=== PATIENT | male | born 1995 | race Caucasian/White ===

== ENCOUNTER 2024-10-13 15:36 | Outpatient (AMB) | payer OTHER, SELFPAY ==
--- NOTE | 2024-10-13 15:37 | MHC.OFFVIS ---
Intake Visit Reasons: 6 Months Accompanied by: Mother Allergies No Known Allergies Allergy (Verified 10/13/24 15:39) Medication List - Last Reconciled 10/13/24 by Dorothy Oneil CNP amitriptyline 75 mg PO BEDTIME cetirizine (Allergy Relief (cetirizine)) 10 mg PO DAILY cholecalciferol (vitamin D3) 50 mcg PO DAILY clonidine HCl 0.1 mg PO BID clozapine mg PO glycopyrrolate mg PO melatonin 3 mg PO BEDTIME topiramate 25 mg PO DAILY HPI Comments Details: 28-year-old man with schizophrenia and migraine type headaches. He was doing okay. Migraines were controlled with topiramate. He had headache only once in a while. Sleep was okay. Review of Systems Const Denies chills, Denies daytime sleepiness, Denies difficulty sleeping, Denies fatigue, Denies fever(s), Denies frequent falls, Reports headache(s), Denies increased appetite, Denies poor appetite, Denies snoring, Denies weakness, Denies weight gain and Denies weight loss Eyes Denies loss of vision ENT Denies vertigo, Denies dizziness and Reports headache(s) Card Denies chest pain at rest, Denies chest pain with activity, Denies syncope, Denies leg edema and Denies palpitations Resp Denies snoring GI Denies constipation, Denies heartburn, Denies diarrhea and Denies nausea Denies urinary frequency, Denies urinary incontinence and Denies urinary urgency Musc Denies abnormal gait, Denies numbness and Denies tingling Skin/Breast Denies dry skin and Denies rash Neuro Denies abnormal gait, Denies vertigo, Denies dizziness, Denies syncope, Denies frequent falls, Reports headache(s), Denies lack of coordination, Denies loss of vision, Denies memory loss, Denies numbness, Denies restless legs, Denies seizure-like activity, Denies tingling, Denies paresthesias, Denies tremor(s) and Denies weakness Psych Denies anxiety, Denies depression, Denies auditory hallucinations, Denies memory loss, Denies visual hallucinations and Denies suicidal ideation Endo Denies fatigue and Denies palpitations Physical Exam Const Other: General Appearance:? normal, in no acute distress. Skin:? no rashes, no significant birthmarks. Heart:? S1, S2 normal, no murmurs. Lungs:? clear anteriorly and posteriorly. Extremities:? no edema. Psych:? alert, oriented, cognitive function intact, cooperative with exam. Neuro Other: Mental Status:?Normal attention, orientation, memory and affect.? Cranial Nerves:?Pupils are equal, round and reactive to light. External occular muscles are intact. Visual ingram are full. Face is symmetrical. Facial sensations are normal. Tongue is midline. Palate elevates symmetrically. Shoulder shrugging is normal. Hearing to bedside conversation is normal. Sensory Exam:?....? Coordination:?No ataxia,?no titubation.? Gait Exam: Within normal limits. Cerebellar Signs:?[id number] is okay. Extrapyramidal System:?No tremor, rigidity with normal facial expressions.? Pronator Drift:?Not present.? Involuntary Movements:?No tremors seen.? Speech:?Normal.? Assessment & Plan Assessment & Plan (1) Migraine: Code(s): G43.909 - Migraine, unspecified, not intractable, without status migrainosus Category: Medical Qualifiers: Migraine type: unspecified Status migrainosus presence: without status migrainosus Intractability: not intractable Qualified Code(s): G43.909 - Migraine, unspecified, not intractable, without status migrainosus Plan: Continue topiramate 25mg 1 tablet at bedtime. Plan Meds tried: amitriptyline Medications: New topiramate 25 mg PO BEDTIME 90 tabs 1RF 90 days Coding Level of Care Code Est Pt Level 3 (61497) Diagnoses Migraine without status migrainosus, not intractable, unspecified migraine type G43.909 Migraine type: unspecified Status migrainosus presence: without status migrainosus Intractability: not intractable
--- OUTSIDE RECORDS SUMMARY | 2024-10-13 16:01 | XMS_ITS | Clinical Summary ---
Author Organization [facility] Address [address] [place] [address] Care Team Providers Care Stem Lead Former Name Role Phone Unavailable Primary Care Provider Unavailabl e Source Comments PLEASE NOTE, if this patient is a minor, it may be UNLAWFUL to discuss sensitive information that is contained in these records (such as FAMILY PLANNING, MENTAL HEALTH or SUBSTANCE ABUSE) with the minor patient's parent or other person without the patient's specific authorization.[facility] Social History Tobacco Use Types Packs/Day Years Used Date Smoking Tobacco: Never Assessed Social Connections Answer Date Recorded Connectedness 0 10/31/2023 Financial Resource Strain Answer Date R ecorded Financial Resource Strain 0 2022 Stress Answer Date Recorded Stress 0 06/17/2022 Physical Activity Answer Date Recorded Physical Activity 0 06/17/2022 Food Insecurity Answer Date Recorded Food 0 11/12/2023 Transportation Needs Answer Date Record ed Transportation 0 06/17/2022 Housing Stability Answer Date Recorded Housing 0 06/17/2022 Safety and Environment Answer Date Josafat rded Safety 0 06/17/2022 Utilities Answer Date Recorded Utilities 0 06/17/2022 Employment Answer Date Recorded Stress 0 10/31/2023 Sex and Gender Information Value Date Recorded Sex Assigned at Not on file Legal Sex Male 12:54 PM PDT Gender Identity Not on file Sexual Orientation Not on file Plan of Treatment Health Maintenance Due Date Last Done Comments Anxiety Screening 1994 Hepatitis C Screening 1994 Tobacco Screening 1994 HIV Screening 2009 Hypertension Screening (#1) 2012 Imm-DTaP/Tdap/Td (1 - Tdap) 2013 Imm-Hepatitis B (1 of 3 - 19+ 3-dose series) 4 [id number] ( season) 2023 Alcohol and Drug Screen 02/17/2024 Depression Annual Screen 02/17/2024 Imm-Influenza (#1) 2024 [place]
--- OUTSIDE RECORDS SUMMARY | 2024-10-13 16:01 | XMS_ITS ---
Author Name [facility] Organization Unknown Care Team Organization Name Specialty Phone Email Start Date End Da te [facility] Josse [facility] 12/24/2021 10/05/2023
--- OUTSIDE RECORDS SUMMARY | 2024-10-13 16:02 | XMS_ITS | Clinical Summary ---
Author Organization LL [address] [place] [address] Address [address] [place] [address] Phone Care Team Providers Care Prescription Eyeglass Maker Name Role Phone Bhakti العلي MD Primary Care Provider [phone] Allergies No known active allergies Medications acetaminophen (TYLENOL) 500 mg tablet TAKE 1 TABLET BY MOUTH ONCE DAILY NEEDED FOR HEADACHE 4 Active albuterol HFA (PROAIR HFA ; PROVENTIL HFA ; VENTOLIN HFA) 90 mcg/actuation inhaler INHALE 2 PUFFS INTO THE LUNGS EVRY 4 HOURS NEEDED FOR COUGH OR WHEEZING. MAY USE 1 PUFF 30 MINUTES BEFORE EXERCISE 4 Active amitriptyline (ELAVIL) 75 mg tablet Take 1 Tablet by mouth at bedtime. Active cloNIDine (CATAPRES) 0.1 mg tablet Take 0.1 mg by mouth 2 times daily. Active cloZAPine (CLOZARIL) 100 mg tablet Take 5 tablets (500 mg total) by mouth at bedtime. Active cloZAPine (CLOZARIL) 100 mg tablet Take 1 tablet (100 mg total) by mouth 1 (one) time each day in the morning. Active glycopyrrolate (ROBINUL) 1 mg tablet Take 1 mg by mouth at bedtime. Active melatonin 3 mg tablet Take 1 Tablet by mouth at bedtime. Active ondansetron (ZOFRAN) 4 mg tablet Take 1 tablet (4 mg total) by mouth every 8 (eight) hours if needed. 4 Active topiramate (TOPAMAX) 25 mg tablet Take 1 tablet (25 mg total) by mouth 1 (one) time each day. 4 Active cholecalciferol (VITAMIN D-3) 50 mcg (2,000 unit) tabletIndication s:Elevated alkaline phosphatase level Take 1 tablet (2,000 Units total) by mouth 1 (one) time each day. 90 tablet 1 5 Active cetirizine (ZyrTEC) 10 mg tablet Take 1 tablet (10 mg total) by mouth 1 (one) time each day. 30 each 5 Active Active Problems Problem Noted Date Diagnosed Date Fatty liver 11/04/2022 Assessment & Plan (07/21/2024 5:59 PM EDT): Ultrasound of the abdomen has been ordered to follow-up on his fatty liver. Orders: US Abdomen Limited; Future Palpitations 08/07/2022 Overview (01/11/2024): Last Assessment & Plan: Given the patient's reports of palpitations, he underwent a 30-day looping monitor which showed sinus rhythm with occasional PVCs and no sustained arrhythmias. During the patient triggered symptomatic events it was noted that he was in sinus rhythm with mild sinus tachycardia. We reviewed these results today. He also underwent an echocardiogram which showed normal LV function and no significant valvular disease. His TSH and magnesium as well as electrolytes were noted to be within normal limits. We reviewed the possible triggers of palpitations including caffeine consumption, alcohol consumption, cigarette smoking, inadequate sleeping patterns, and stress. At this point, the patient will attempt to avoid the usual triggers. No further work up is required at this point. Elevated serum alkaline phosphatase level 2020 Assessment & Plan (07/21/2024 5:59 PM EDT): Follow-up with GI. Follow low-fat diet. Obesity (BMI 30-39.9) 06/09/2018 Overview (01/11/2024): Last Assessment & Plan: Patient is overweight. Approaches towards weight loss are discussed, including burning more calories than one takes in by portion control and regular exercise with an emphasis on duration rather than intensity. I have reviewed with the patient the importance of a heart healthy lifestyle which includes eating a low-fat low-salt diet, getting regular exercise, maintaining a healthy weight, not smoking, and following up with routine medical care. Asthma 01/22/2017 Assessment & Plan (07/21/2024 5:59 PM EDT): Continue albuterol inhaler as needed. Impulse disorder, unspecified 01/22/2017 Overview (01/11/2024): Dr Ochoa(psychiatry) [facility]. Damaris(therapist) [address], [place] Schizophrenia (CMS/HCC V24, CMS/HCC V28) 017 Overview (01/11/2024): Dr Ochoa(psychiatry) [facility]. Damaris(therapist) [address], [place] Encounters Date Type Department Care Team Description 09/02/2024 8:01 AM EDT - 09/02/2024 11:59 PM EDT Hospital Encounter Ultrasound - [facility] [address] [place] [address] Discharge Disposition: Home or Self Care 08/23/2024 10:00 AM EDT Consult Gastroenterology - [place] [address] [facility] [address] [facility] [address] [place] [address] Delmy Merchant NP Elevated serum alkaline phosphatase level (Primary Dx); Fatty liver 07/21/2024 3:30 PM EDT [facility] [place] [address] Josse Loera MD Fatty liver (Primary Dx); Elevated serum alkaline phosphatase level; Mild intermittent asthma without complication; Screening cholesterol level; Screening for diabetes mellitus; Tachycardia from Last 3 Months Immunizations Name Administration Dates Next Due Influenza Quadravalent, MDCK , 0.5ml, preservative free (Flucelvax) 6mo and older 11/04/2022,12/08/2018 Influenza trivalent, MDCK, 0 .5mL, preservative free (Flucelvax) 6mo and older 03/08/2024 Pneumococcal polysaccharide 23 valent (Pneumovax 23) 2yo and older 04/22/2017 Tdap Tetanus diptheria acell ular pertussis (Boostrix; Adacel) 7yo and older 04/22/2017 Surgical History Surgery Date Site/Laterality Comments OTHER SURGICAL HISTORY PROCEDURE: DENIES PREVIOUS SURGERY Medical History Medical History Date Comments Schizophrenia ([facility] V24, [facility] V28) 01/22/2017 DX:Schizophrenia ([facility]); COMM ENT: Dr Ochoa(psychiatry) [facility]. Damaris(therapist) [address], [place] Impulse disorder, unspecified 01/22/2017 DX :Impulse disorder, unspecified; COMMENT: Dr Ochoa(psychiatry) [facility]. Damaris(therapist) [address], [place] Asthma 01/22/2017 DX:Asthma Elevated serum alkaline phos phatase level 12/03/2020 DX:Elevated serum alkaline phosphatase level Fatty liver 11/04/2022 DX:Fatty liver Family History Medical History Relation Name Comments Drug abuse Mother Relation Name Status Comments Mother Social History Tobacco Use Types Packs/Day Years Used Date Smoking Tobacco: Never Smokeless Tobacco: Never Tobacco Cessation:Counseling Given: Not Answered Alcohol Use Standard Drinks/Week Comments Yes 0 (1 standard drink = 0.6 oz pur e alcohol) Sex and Gender Information Value Date Recorded Sex Assigned at Not on file Legal Sex Male 9:03 AM EST Gender Identity Not on file Sexual Orientation Not on file Obstetrics History Last Filed Vital Signs Vital Sign Reading Time Taken Comments Blood Pressure 100/68 08/23/2024 9:53 AM EDT Pulse 100 08/23/2024 9:53 AM EDT Temperature - - Respiratory Rate - - Oxygen Saturation 98% 08/23/2024 9:53 AM EDT Inhaled Oxygen Concentration - - Weight 92.5 kg (204 lb) 08/23/2024 9:53 AM EDT Height 167.6 cm (5' 6 ) 08/23/2024 9:53 AM EDT Body Mass Index 32.93 08/23/2024 9:53 AM EDT Plan of Treatment Upcoming Encounters Date Type Department Care Team ([facility] st Contact Info) Description 02/01/2025 8:30 AM EST Office Visit Internal Medicine - [facility] [address] [place], [place] [phone] Bhakti العلي MD [address] [facility] [place] Health Maintenance Due Date Last Done Comments Hepatitis B Vaccines (1 of 3 - 19+ 3-dose series) 2013 Pneumococcal Vaccine: Pediatrics (0 to 5 Years) and At-Risk Patients (6 to 49 Years) (2 of 2 - PCV) 04/22/2018 04/22/2017 HIV Screening 01/25/2022 Hepatitis C Screening 01/25/2022 Social Influencers of Health Screening 01/25/2022 COVID-19 Vaccine ( season) 2023 02/26/2022, 01/12/2021, 05/31/2020, Additional history exists Depression Screening 02/17/2024 Influenza Vaccine (#1) 2024 , 11/04/2022, 12/08/2018 DTaP,Tdap,and Td Vaccines (2 - Td or Tdap) 04/23/2027 04/22/2017 Cholesterol Screening (Lipid Panel) 06/22/2028 06/23/2023, 06/23/2023 HIB Vaccines Aged Out No longer eligi ble based on patient's age to complete this topic HPV Vaccines Aged Out No longer eligi ble based on patient's age to complete this topic Hepatitis A Vaccines Aged Out No long er eligible based on patient's age to complete this topic IPV Vaccines Aged Out No longer eligi ble based on patient's age to complete this topic MMR Vaccines Aged Out No longer eligi ble based on patient's age to complete this topic Meningococcal ACWY Vaccine Aged Out N o longer eligible based on patient's age to complete this topic Meningococcal B Vaccine Aged Out No l onger eligible based on patient's age to complete this topic RSV Immunization Patients Under 20 months Aged Out No longer eligible based on patient's age to complete this topic Varicella Vaccines Aged Out No longer eligible based on patient's age to complete this topic Procedures Procedure Name Priority Date/Time Associated Diagnosis Comments CBC WITH AUTO DIFFERENTIAL Routine 10/05/2024 7:52 AM EDT Mood disorder (CMS/HCC V24) HEPATIC FUNCTION PANEL Routine 7:52 AM EDT Mood disorder (CMS/HCC V24) CBC AND DIFFERENTIAL Routine 10/05/2024 7:52 AM EDT Mood disorder (CMS/HCC V24) US ABDOMEN LIMITED Routine 09/02/2024 8: 32 AM EDT Fatty liver CBC WITH AUTO DIFFERENTIAL Routine 08/23/2024 10:36 AM EDT Drug therapy ELECTROLYTE PANEL Routine 08/23/2024 10: 36 AM EDT Drug therapy CBC AND DIFFERENTIAL Routine 08/23/2024 10:36 AM EDT Drug therapy HEPATIC FUNCTION PANEL Routine 10:36 AM EDT Elevated serum alkaline phosphatase level SMOOTH MUSCLE ANTIBODY IGG Routine 08/23/2024 10:36 AM EDT Elevated serum alkaline phosphatase level CERULOPLASMIN Routine 08/23/2024 10:36 AM EDT Elevated serum alkaline phosphatase level ANTIMITOCHONDRIAL ANTIBODY Routine 08/23/2024 10:36 AM EDT Elevated serum alkaline phosphatase level YANNICK IFA WITH TITER AND PATTERN Routine 08/23/2024 10:36 AM EDT Elevated serum alkaline phosphatase level CBC WITH AUTO DIFFERENTIAL Routine 07/25/2024 7:57 AM EDT Encounter for long-term (current) use of high-risk medication CBC AND DIFFERENTIAL Routine 07/25/2024 7:57 AM EDT Encounter for long-term (current) use of high-risk medication HEMOGLOBIN A1C Routine 07/25/2024 7:56 AM EDT Screening for diabetes mellitus LIPID PANEL Routine 06/23/2023 from Last 3 Months or Most Recently Relevant to Health Maintenance Results * (ABNORMAL) CBC auto differential (10/05/2024 7:52 AM EDT) Only the most recent of3 resultswithin the time period is included. [facility] WBC 7.1 4.8 - 10.8 K/mcL LAB HEMETOLOGY METHOD 10/05/2024 8:26 AM [facility] RBC 5.10 4.50 - 5.50 M/mcL LAB HEMETOLOGY METHOD 10/05/2024 8:26 AM [facility] Hemoglobin 14.4 13.5 - 17.5 g/dL LAB HEMETOLOGY METHOD 10/05/2024 8:26 AM [facility] Hematocrit 43.3 42.0 - 54.0 % LAB HEMETOLOGY METHOD 10/05/2024 8:26 AM [facility] MCV 84.6 79.0 - 98.0 FL LAB HEMETOLOGY METHOD 10/05/2024 8:26 AM [facility] MCH 28.1 27.0 - 32.0 pcg LAB HEMETOLOGY METHOD 10/05/2024 8:26 AM [facility] MCHC 33.3 32.0 - 37.0 g/dL LAB HEMETOLOGY METHOD 10/05/2024 8:26 AM [facility] RDW 12.2 11.0 - 15.0 % LAB HEMETOLOGY METHOD 10/05/2024 8:26 AM [facility] Platelets 180 130 - 400 K/mcL LAB HEMETOLOGY METHOD 10/05/2024 8:26 AM [facility] MPV 11.2(H) 7.0 - 11.0 FL LAB HEMETOLOGY METHOD 10/05/2024 8:26 AM [facility] NRBC 0.0 <1.0 % LAB HEMETOLOGY METHOD 10/05/2024 8:26 AM [facility] NRBC Absolute 0.00 <0.10 K/mcL LAB HEMETOLOGY METHOD 10/05/2024 8:26 AM [facility] Neutrophils Relative 65.4 % LAB HEMETOLOGY METHOD 10/05/2024 8:26 AM [facility] Lymphocytes Relative 23.1 % LAB HEMETOLOGY METHOD 10/05/2024 8:26 AM [facility] Monocytes Relative 10.7 % LAB HEMETOLOGY METHOD 10/05/2024 8:26 AM [facility] Eosinophils Relative 0.0 % LAB HEMETOLOGY METHOD 10/05/2024 8:26 AM [facility] Basophils Relative 0.4 % LAB HEMETOLOGY METHOD 10/05/2024 8:26 AM [facility] Immature Granulocytes Relative 0.4 % LAB HEMETOLOGY METHOD 10/05/2024 8:26 AM [facility] Neutrophils Absolute 4.66 1.50 - 7.00 K/mcL LAB HEMETOLOGY METHOD 10/05/2024 8:26 AM [facility] Lymphocytes Absolute 1.65 1.00 - 5.00 K/mcL LAB HEMETOLOGY METHOD 10/05/2024 8:26 AM [facility] Monocytes Absolute 0.76 0.20 - 1.00 K/mcL LAB HEMETOLOGY METHOD 10/05/2024 8:26 AM [facility] Eosinophils Absolute 0.00 0.00 - 0.50 K/mcL LAB HEMETOLOGY METHOD 10/05/2024 8:26 AM [facility] Basophils Absolute 0.03 0.00 - 0.20 K/mcL LAB HEMETOLOGY METHOD 10/05/2024 8:26 AM [facility] Immature Granulocytes Absolute 0.03 0.00 - 0.03 K/mcL LAB HEMETOLOGY METHOD 10/05/2024 8:26 AM [facility] Blood Venous blood specimen / Unknown Venipuncture / Unknown 10/05/2024 7:52 AM EDT 10/05/2024 8:20 AM EDT us Addie LEDEZMA LAB BLOOD ORDERABLES Final Resu lt [facility] [address] [place] [address], [place] [phone] * (ABNORMAL) Hepatic function panel (10/05/2024 7:52 AM EDT) Only the most recent of2 resultswithin the time period is included. Total Protein 6.9 6.0 - 8.0 g/dL LAB CHEMISTRY METHOD 10/05/2024 8:58 AM [facility] Albumin 3.9 3.2 - 5.0 g/dL LAB CHEMISTRY METHOD 10/05/2024 8:58 AM [facility] Total Bilirubin 0.6 0.0 - 1.4 mg/dL LAB CHEMISTRY METHOD 10/05/2024 8:58 AM [facility] Bilirubin, Direct 0.1 0.0 - 0.3 mg/dL LAB CHEMISTRY METHOD 10/05/2024 8:58 AM [facility] Bilirubin, Indirect 0.5 0.0 - 1.1 mg/dL LAB CHEMISTRY METHOD 10/05/2024 8:58 AM [facility] ALT (SGPT) 31 10 - 60 unit/L LAB CHEMISTRY METHOD 10/05/2024 8:58 AM [facility] AST (SGOT) 23 10 - 42 unit/L LAB CHEMISTRY METHOD 10/05/2024 8:58 AM [facility] Alkaline Phosphatase 147(H) 42 - 121 unit/L LAB CHEMISTRY METHOD 10/05/2024 8:58 AM EDT [facility] Blood Venous blood specimen / Unknown Venipuncture / Unknown 10/05/2024 7:52 AM EDT 10/05/2024 8:20 AM EDT us Addie LEDEZMA LAB BLOOD ORDERABLES Final Resu lt [facility] [address] [place] [address], [place] [phone] * US Abdomen Limited (09/02/2024 8:32 AM EDT) Anatomical Region Laterality Modality Body Ultrasound 09/02/2024 1:45 PM EDT Impressions 09/02/2024 1:50 PM EDT Possible hepatocellular disease. -------- FINAL REPORT -------- Dictated By: Mae Garay Dictated Date: 09/02/2024 13:45 ET Assigned Physician: Mae Garay Reviewed and Electronically Signed By: Mae Garay Signed Date: 09/02/2024 13:50 ET Workstation ID: [id number] Transcribed By: Self Edit Transcribed Date: 09/02/2024 13:45 ET Narrative 09/02/2024 1:50 PM EDT ABDOMINAL ULTRASOUND-LIMITED History: Fatty liver. Comparison: Right upper quadrant ultrasound 07/22/2023. FINDINGS: The study is limited by the patient's body habitus. There is no evidence of cholelithiasis. The common bile duct is not dilated, measuring 3 mm. The gallbladder wall is not thickened. No pericholecystic fluid is seen. No ascites are seen. The pancreas is obscured by the overlying bowel gas. The liver measures 14.0 cm in length and demonstrates coarse echotexture. No focal lesions are seen in the liver and there is no evidence of intrahepatic ductal dilation. Normal hepatopedal flow is seen in the main portal vein. No evidence of hydronephrosis, mass, or calculus was seen in the right kidney. The right kidney measures 11.4 cm in greatest length. Procedure Note Mae Garay MD - 09/02/2024 ABDOMINAL ULTRASOUND-LIMITED History: Fatty liver. Comparison: Right upper quadrant ultrasound 07/22/2023. FINDINGS: The study is limited by the patient's body habitus. There is no evidence of cholelithiasis. The common bile duct is notdilated, measuring 3 mm. The gallbladder wall is not thickened. Nopericholecystic fluid is seen. No ascites are seen. The pancreas is obscured by the overlying bowel gas. The liver measures 14.0 cm in length and demonstrates coarse echotexture.No focal lesions are seen in the liver and there is no evidence ofintrahepatic ductal dilation. Normal hepatopedal flow is seen in the mainportal vein. No evidence of hydronephrosis, mass, or calculus was seen in the rightkidney. The right kidney measures 11.4 cm in greatest length. IMPRESSION: Possible hepatocellular disease. -------- FINAL REPORT -------- Dictated By: Mae Garay Dictated Date: 09/02/2024 13:45 ET Assigned Physician: Mae Garay Reviewed and Electronically Signed By: Mae Garay Signed Date: 09/02/2024 13:50 ET Workstation ID: [id number] Transcribed By: Self Edit Transcribed Date: 09/02/2024 13:45 ET us Josse Loera MD IMG US PROCEDURES Final R esult * YANNICK IFA with titer and pattern (08/23/2024 10:36 AM EDT) YANNICK Negative Negative 08/24/2024 1:37 PM EDT [facility] Blood Venous blood specimen / Unknown Venipuncture / Unknown 08/23/2024 10:36 AM EDT 08/23/2024 12:18 PM EDT us Delmy Merchant PHARMACY INTERN LAB BLOOD ORDERABLES Final Resu lt [facility] [address] [place] [address], * Smooth muscle antibody IgG (08/23/2024 10:36 AM EDT) Smooth Muscle (F-Actin) IgG Ab 9 <20 UNITS 08/25/2024 11:06 AM EDT [facility] Comment: Interpretation: Negative Test performed at [facility], [address] [place] [address] Arminda Goodman MD, PhD - Door To Door Salesperson Blood Venous blood specimen / Unknown Venipuncture / Unknown 08/23/2024 10:36 AM EDT 08/23/2024 12:18 PM EDT Delmy Merchant PHARMACY INTERN LAB BLOOD ORDERABLES Final Resu lt [facility] [address] [place] [address] * Ceruloplasmin (08/23/2024 10:36 AM EDT) Ceruloplasmin 33 20 - 60 mg/dL 08/25/2024 5:15 AM EDT [facility] Comment: Test performed at [facility], [address] [facility] [place] [place] [address] Arminda Goodman MD, PhD - Door To Door Salesperson Blood Venous blood specimen / Unknown Venipuncture / Unknown 08/23/2024 10:36 AM EDT 08/23/2024 12:18 PM EDT Delmy Merchant PHARMACY INTERN LAB BLOOD ORDERABLES Final Resu lt [facility] [address] [place] [address] * Antimitochondrial antibody (08/23/2024 10:36 AM EDT) Mitochondrial Antibody Quantitative 7.4 <=20.0 units LAB CHEMISTRY METHOD 08/24/2024 11:27 AM EDT [facility] Mitochondrial Antibody Qualitative Negative Negative LAB CHEMISTRY METHOD 08/24/2024 11:27 AM EDT [facility] Blood Venous blood specimen / Unknown Venipuncture / Unknown 08/23/2024 10:36 AM EDT 08/23/2024 12:18 PM EDT Delmy Merchant NP LAB BLOOD ORDERABLES Final Resu lt [facility] [address] [place] [address], [place] [phone] * Electrolyte panel (08/23/2024 10:36 AM EDT) Sodium 140 133 - 145 mmol/L LAB CHEMISTRY METHOD 08/23/2024 2:32 PM EDT [facility] Potassium 4.4 3.5 - 5.5 mmol/L LAB CHEMISTRY METHOD 08/23/2024 2:32 PM EDT [facility] Chloride 109 96 - 110 mmol/L LAB CHEMISTRY METHOD 08/23/2024 2:32 PM EDT [facility] CO2 27 21 - 32 mmol/L LAB CHEMISTRY METHOD 08/23/2024 2:32 PM EDT [facility] Anion Gap 4 3 - 11 LAB CHEMISTRY METHOD 08/23/2024 2:32 PM EDT [facility] Blood Venous blood specimen / Unknown Venipuncture / Unknown 08/23/2024 10:36 AM EDT 08/23/2024 12:18 PM EDT Addie LEDEZMA LAB BLOOD ORDERABLES Final Resu lt [facility] [address] [place] [address], [place] [phone] * Hemoglobin A1c (07/25/2024 7:56 AM EDT) Pathologist [facility] Hemoglobin A1C 5.1 <6.5 % LAB CHEMISTRY METHOD 07/25/2024 2:07 PM EDT [facility] Mean Bld Glu Estim. 100 mg/dL LAB CHEMISTRY METHOD 07/25/2024 2:07 PM EDT [facility] Blood Venous blood specimen / Unknown Venipuncture / Unknown 07/25/2024 7:56 AM EDT 07/25/2024 8:30 AM EDT Josse Loera MD LAB BLOOD ORDERABLES Marianna l Result [facility] [address] [place] [address], * (ABNORMAL) Lipid panel (06/23/2023) [facility] LDL/HDL Ratio 4 0 - 4 Triglycerides 74 0 - 150 mg/dL Cholesterol 117 0 - 200 mg/dL HDL 31(A) >=40 mg/dL LDL Cholesterol 72 0 - 100 mg/dL Blood Venous blood specimen / Unknown [facility] Provider LAB BLOOD ORDERABLES Marianna l Result from Last 3 Months or Most Recently Relevant to Health Maintenance Insurance [facility] Care Teams Prescription Eyeglass Maker Relationship Specialty Start Date End Date Bhakti العلي MD [address] [facility] [place] [address] PCP - General Internal Medicine 09/16/24
== END 2024-10-13 15:47 | disposition home or self-care (01) ==
LOC: HO.HSM 15:36
PROVIDERS: PCP Internal Medicine; Referring Provider Internal Medicine; Visit Provider Registered Nurse
DX: G43.909 Migraine, unspecified, not intractable, without status migrainosus (principal)
CPT/HCPCS: 99213

== ENCOUNTER → 2024-10-13 15:36 | Outpatient (BNVA) | payer OTHER, SELFPAY | PROVIDERS: PCP Internal Medicine; Referring Provider Internal Medicine; Visit Provider Registered Nurse | DX: G43.909 Migraine, unspecified, not intractable, without status migrainosus (principal); Z79.899 Other long term (current) drug therapy | CPT/HCPCS: 99212 ==